=== PATIENT | female | born 1990 | race Caucasian/White ===

== ENCOUNTER 2021-05-18 06:40 | Emergency (ER) | payer MEDICAID ==
[~2021-05-18] VITALS: Ht 167.6 cm; Wt 89.8 kg
[2021-05-18 06:50] VITALS: BP 114/79
[2021-05-18] MEDS ORDERED: MORPHINE SULFATE 4 MG/ML SYR IVP ONE (07:10)
[2021-05-18] MEDS ORDERED: KETOROLAC 30 MG/ML VIAL IVP ONE (07:10)
[2021-05-18 07:56] LABS: BASOPHILS # (AUTO) 0.1 K/uL (0.00-0.22); BASOPHILS % (AUTO) 1.1 % (0.0-2.0); EOSINOPHILS # (AUTO) 0.2 K/uL (0-0.4); HEMOGLOBIN 14.8 g/dL (12.0-16.0); LYMPHOCYTES % (AUTO) 42.6 % (20.5-51.1); MEAN CORPUSCULAR HEMOGLOBIN 32 pg (27-31); MEAN CORPUSCULAR HGB CONC 34 g/dL (33-37); MEAN CORPUSCULAR VOLUME 94.5 fL (80-94); MONOCYTES # (AUTO) 0.5 K/uL (0.8-1.0); MONOCYTES % (AUTO) 7.4 % (1.7-9.3); NEUTROPHILS # (AUTO) 3.3 K/uL (1.8-7.7); NEUTROPHILS % (AUTO) 45.9 % (42.2-75.2); PLATELET COUNT (AUTO) 320 K/uL (140-450); RED BLOOD CELL COUNT(AUTO) 4.66 MIL/uL (4.20-5.40); WHITE BLOOD COUNT (AUTO) 7.1 K/uL (4.8-10.8)
[2021-05-18 08:05] LABS: ALBUMIN 3.9 g/dL (3.4-5.0); ANION GAP 15.8 (8-16); CARBON DIOXIDE 24.1 mmol/L (21-32); CREATININE 0.8 mg/dL (0.6-1.3); POTASSIUM 3.9 mmol/L (3.5-5.1); TOTAL BILIRUBIN 0.2 mg/dL (0.0-1.0)
[2021-05-18] MEDS ORDERED: IBUP-2213 PO (09:11)
[2021-05-18 10:22] LABS: APPEARANCE,URINE HAZY (CLEAR); BILIRUBIN,URINE NEGATIVE (NEGATIVE); BLOOD, URINE 3+ (NEGATIVE); COLOR,URINE ORANGE (YELLOW); LEUKOCYTE ESTERASE ,URINE 1+ (NEGATIVE); NITRITE, URINE NEGATIVE (NEGATIVE); UGLUCOSE NEGATIVE (NEGATIVE)
[2021-05-18 10:37] LABS: WBC,URINE 0-5 /HPF (0-5)
[2021-05-18 10:39] LABS: RBC,URINE 80-100 /HPF (0-5)
[2021-05-18 10:49] VITALS: BP 115/67
== END 2021-05-18 10:49 | disposition home or self-care (01) ==
LOC: MED 06:40
DX: R10.2 Pelvic and perineal pain (principal); Z98.890 Other specified postprocedural states; Z79.899 Other long term (current) drug therapy
CPT/HCPCS: 36415; 74176; 80053; 81001; 81025; 85025; 87086; 96374; 96375; 99284; J1885; J2270

== ENCOUNTER 2021-06-20 15:10 | Emergency (ER) | payer MEDICAID ==
[~2021-06-20] VITALS: Ht 167.6 cm; Wt 90.3 kg
[~2021-06-20 15:10] MED LIST: IBUP-2213 PO
[2021-06-20 15:16] VITALS: BP 135/111
[2021-06-20] MEDS ORDERED: HYDROcodone/APAP 5/325 MG 1 TAB TAB PO ONE (15:40)
[2021-06-20 16:26] LABS: BASOPHILS # (AUTO) 0.1 K/uL (0.00-0.22); BASOPHILS % (AUTO) 0.7 % (0.0-2.0); EOSINOPHILS # (AUTO) 0.2 K/uL (0-0.4); EOSINOPHILS % (AUTO) 1.3 % (0.0-4.0); HEMOGLOBIN 14.2 g/dL (12.0-16.0); LYMPHOCYTES # (AUTO) 2.3 K/uL (2.5-16.5); LYMPHOCYTES % (AUTO) 19.5 % (20.5-51.1); MEAN CORPUSCULAR HEMOGLOBIN 31 pg (27-31); MEAN CORPUSCULAR HGB CONC 33 g/dL (33-37); MEAN CORPUSCULAR VOLUME 95.3 fL (80-94); MONOCYTES # (AUTO) 0.6 K/uL (0.8-1.0); MONOCYTES % (AUTO) 4.7 % (1.7-9.3); NEUTROPHILS # (AUTO) 8.7 K/uL (1.8-7.7); NEUTROPHILS % (AUTO) 73.8 % (42.2-75.2); PLATELET COUNT (AUTO) 331 K/uL (140-450); RED BLOOD CELL COUNT(AUTO) 4.51 MIL/uL (4.20-5.40); RED CELL DISTRIBUTION WIDTH 13.6 % (11.6-13.7); WHITE BLOOD COUNT (AUTO) 11.8 K/uL (4.8-10.8)
[2021-06-20 16:41] LABS: PROTHROMBIN TIME 10.2 secs (10.8-13.4)
[2021-06-20 16:44] LABS: ALBUMIN 3.9 g/dL (3.4-5.0); ANION GAP 13.1 (8-16); CARBON DIOXIDE 23.6 mmol/L (21-32); CREATININE 0.7 mg/dL (0.6-1.3); POTASSIUM 3.7 mmol/L (3.5-5.1); TOTAL BILIRUBIN 0.4 mg/dL (0.0-1.0)
[2021-06-20 17:46] LABS: APPEARANCE,URINE CLEAR (CLEAR); BILIRUBIN,URINE 1+ (NEGATIVE); BLOOD, URINE 3+ (NEGATIVE); COLOR,URINE YELLOW (YELLOW); LEUKOCYTE ESTERASE ,URINE TRACE (NEGATIVE); NITRITE, URINE NEGATIVE (NEGATIVE); PH,URINE 5.5 (5.0-9.0); UGLUCOSE NEGATIVE (NEGATIVE)
[2021-06-20 18:09] LABS: RBC,URINE >100 /HPF (0-5)
[2021-06-20] MEDS ORDERED: HYDROcodone/APAP 5/325 MG 1 TAB TAB ONE (18:40)
--- NOTE | 2021-06-20 18:44 | NUR ---
PT LEFT WITHOUT PAPERS AFTER DR MENDEZ EXPLANIED RESULTS.
--- NOTE | 2021-06-20 20:10 | NUR ---
CALLED PT. NO ANSWER. CONFIRMED PT LEFT PRIOR TO D/C PAPERWORK.
== END 2021-06-20 18:44 | disposition home or self-care (01) ==
LOC: MED 15:10
DX: O20.0 Threatened abortion (principal); Z79.899 Other long term (current) drug therapy
CPT/HCPCS: 36415; 76856; 80053; 81001; 81025; 84702; 85025; 85610; 86886; 86900; 86901; 87086; 99284

== ENCOUNTER 2021-06-24 12:27 | Emergency (ER) | payer MEDICAID ==
[~2021-06-24] VITALS: Ht 167.6 cm; Wt 90.3 kg
[2021-06-24 12:40] VITALS: BP 133/73
--- NOTE | 2021-06-24 12:43 | NUR ---
PT SENT TO LOBBY TO WAIT FOR A BED.
--- NOTE | 2021-06-24 13:07 | NUR ---
PROCESS ENGINEERING TECHNICIAN WITH PT.
--- NOTE | 2021-06-24 13:12 | NUR ---
GAVE UA TO GROUP CONTRACT ANALYST.
[2021-06-24 13:18] LABS: BASOPHILS # (AUTO) 0.1 K/uL (0.00-0.22); BASOPHILS % (AUTO) 0.9 % (0.0-2.0); EOSINOPHILS # (AUTO) 0.1 K/uL (0-0.4); EOSINOPHILS % (AUTO) 2.1 % (0.0-4.0); HEMATOCRIT 43.3 % (36-48); HEMOGLOBIN 14.3 g/dL (12.0-16.0); LYMPHOCYTES # (AUTO) 2.2 K/uL (2.5-16.5); LYMPHOCYTES % (AUTO) 35.4 % (20.5-51.1); MEAN CORPUSCULAR HEMOGLOBIN 31 pg (27-31); MEAN CORPUSCULAR HGB CONC 33 g/dL (33-37); MEAN CORPUSCULAR VOLUME 94.9 fL (80-94); MONOCYTES # (AUTO) 0.4 K/uL (0.8-1.0); MONOCYTES % (AUTO) 6.3 % (1.7-9.3); NEUTROPHILS # (AUTO) 3.5 K/uL (1.8-7.7); NEUTROPHILS % (AUTO) 55.3 % (42.2-75.2); PLATELET COUNT (AUTO) 360 K/uL (140-450); RED BLOOD CELL COUNT(AUTO) 4.56 MIL/uL (4.20-5.40); RED CELL DISTRIBUTION WIDTH 13.4 % (11.6-13.7); WHITE BLOOD COUNT (AUTO) 6.3 K/uL (4.8-10.8)
[2021-06-24 13:22] LABS: APPEARANCE,URINE CLEAR (CLEAR); BILIRUBIN,URINE NEGATIVE (NEGATIVE); BLOOD, URINE NEGATIVE (NEGATIVE); COLOR,URINE YELLOW (YELLOW); LEUKOCYTE ESTERASE ,URINE NEGATIVE (NEGATIVE); NITRITE, URINE NEGATIVE (NEGATIVE); UGLUCOSE NEGATIVE (NEGATIVE)
[2021-06-24] MEDS ORDERED: ACET-8386 PO (14:15)
[2021-06-24] MEDS ORDERED: NITR100C7 PO (14:15)
--- NOTE | 2021-06-24 14:19 | NUR ---
Patient discharged with v/s stable. Written and verbal after care instructions given and explained. Patient alert, oriented and verbalized understanding of instructions. Ambulatory with steady gait. All questions addressed prior to discharge. ID band removed. Patient advised to follow up with PMD. Rx of NORCO AND MACROBID given. Patient educated on indication of medication including possible reaction and side effects. Opportunity to ask questions provided and answered.
== END 2021-06-24 14:19 | disposition home or self-care (01) ==
LOC: MED 12:27
DX: O03.9 Complete or unspecified spontaneous abortion without complication (principal); Z79.899 Other long term (current) drug therapy
CPT/HCPCS: 36415; 81003; 81025; 84702; 85025; 99283

== ENCOUNTER 2023-07-18 21:04 | Emergency (ER) | payer BC, MEDICAID ==
[~2023-07-18] VITALS: Ht 170.2 cm; Wt 81.6 kg
[~2023-07-18 21:04] MED LIST changes: +ACET-8905 PO; +NITR100C7 PO
[2023-07-18 21:05] VITALS: BP 123/79; PULSE 78; RESP 16; TEMP 97.2; O2SAT 100
[2023-07-18] MEDS ORDERED: MORPHINE SULFATE 4 MG/ML SYR IM ONE (22:05)
[2023-07-18] MEDS ORDERED: TRAM50TA3 PO ×2 (22:55→22:58)
[2023-07-18 23:15] VITALS: BP 123/79; PULSE 78; RESP 16; TEMP 97.2; O2SAT 100
== END 2023-07-18 23:15 | disposition home or self-care (01) ==
LOC: MED 21:04
DX: N80.9 Endometriosis, unspecified (principal); F17.200 Nicotine dependence, unspecified, uncomplicated; Z79.899 Other long term (current) drug therapy; Z98.890 Other specified postprocedural states
CPT/HCPCS: 81002; 81025; 96372; 99283; J2270